=== PATIENT | female | born 1945 | race Caucasian/White ===

== ENCOUNTER 2016-11-05 09:34 | Outpatient (CLI) | payer OTHER ==
--- NOTE | 2016-11-05 10:35 | DIAGNOSTIC IMAGING REPORT ---
PROCEDURE: US SOFT TISSUE THYR/NECK/HEAD INDICATION: SWELLING BASE OF NECK TECHNIQUE: Flores scale and color Doppler sonographic images of the thyroid gland were obtained. COMPARISON: None. FINDINGS: Swelling at the base of the neck corresponds to adipose tissue. RIGHT LOBE: Measures 4.9 x 2.4 x 1.9 cm. There is a 3 ml mid pole cyst and 5 mm solid mid pole lesion with hypoechoic rim suggestive of an adenoma. LEFT LOBE: Measures 5.3 x 2.2 x 1.7 cm. There is an 8 mm mid pole complex well marginated nodule. ISTHMUS: Measures 6 mm. IMPRESSION: 1. No evidence of a mass at the base of the neck 2. Small bilateral thyroid nodules suggestive of adenomas.
--- NOTE | 2016-11-05 10:57 | DIAGNOSTIC IMAGING REPORT ---
PROCEDURE: MG BILATERAL SCREENING W/CAD INDICATION: Pain. Family history breast carcinoma (sister). TECHNIQUE: Bilateral CC and MLO digital views. COMPARISON: Compared to 10/12/2014, , and 07/22/2012. FINDINGS: Computer-aided detection applied. Mildly dense with a few dystrophic calcifications. No change. IMPRESSION: 1. Negative mammogram. RESULT CODE: 1- Negative. A. A negative report should not delay biopsy if a dominant or clinically suspicious mass is present. 10-15% of cancers are not identified by x-ray. B. A negative report may reinforce clinical impression. C. Adenosis and dense breasts may obscure an underlying neoplasm. D. False positive reports average 6-10%. E.. A yearly screening mammogram is recommended. A reminder letter will be scheduled.
== END 2016-11-05 23:00 ==
LOC: MAM SRH 09:34
DX: R22.1 Localized swelling, mass and lump, neck (principal); Z12.31 Encounter for screening mammogram for malignant neoplasm of breast; Z80.3 Family history of malignant neoplasm of breast

== ENCOUNTER 2017-03-02 09:08 | Outpatient (CLI) | payer OTHER | END 2017-03-02 23:00 | LOC: RT SRH 09:08 | DX: R06.02 Shortness of breath (principal); R06.00 Dyspnea, unspecified; J98.4 Other disorders of lung ==

== ENCOUNTER → 2017-03-04 | Outpatient (CLI) | payer OTHER ==
--- NOTE | 2017-03-08 16:00 | DIAGNOSTIC IMAGING REPORT ---
REFERRING PHYSICIAN/PROVIDER: Malcolm Wei MD CONSULTING INFORMATION TECHNOLOGY ASSISTANT: Benjamin Choudhary MD PROCEDURE PERFORMED: NM CARDIAC STRESS TEST INDICATION: SOB,DYSPNEA Stress PORTION: Please see Dr. Sidhu's dictation 2-day SESTAMIBI INTERPRETATION: On the day 11 the patient underwent treadmill stress testing with 29 mCi of technetium 99m labeled sestamibi injected at peak exercise. On day two the patient underwent rest imaging with 32 mCi of technetium 99m labeled sestamibi injected at rest with SPECT tomography performed. Rest stress images were then compared. The LV was seen to be normal in size. There is a moderate sized area of mild ischemia noted in the lateral wall. Computer assessed ejection fraction was normal at 64%. IMPRESSION: 1. Moderate sized area of mild ischemia noted in the lateral wall. 2. Normal left ventricular size 3. Normal left ventricular function 4. Intermediate rest study 5. Would recommend cardiac consultation given abnormal stress test findings.
--- NOTE | 2017-03-08 16:00 | DIAGNOSTIC IMAGING REPORT ---
REFERRING PHYSICIAN/PROVIDER: Malcolm Wei MD CONSULTING TOLL MECHANIC: Benjamin Choudhary MD PROCEDURE PERFORMED: NM CARDIAC STRESS TEST INDICATION: SOB,DYSPNEA Stress PORTION: Please see Dr. Sidhu's dictation 2-day SESTAMIBI INTERPRETATION: On the day 11 the patient underwent treadmill stress testing with 29 mCi of technetium 99m labeled sestamibi injected at peak exercise. On day two the patient underwent rest imaging with 32 mCi of technetium 99m labeled sestamibi injected at rest with SPECT tomography performed. Rest stress images were then compared. The LV was seen to be normal in size. There is a moderate sized area of mild ischemia noted in the lateral wall. Computer assessed ejection fraction was normal at 64%. IMPRESSION: 1. Moderate sized area of mild ischemia noted in the lateral wall. 2. Normal left ventricular size 3. Normal left ventricular function 4. Intermediate rest study 5. Would recommend cardiac consultation given abnormal stress test findings.
== END ==
LOC: RT SRH 12:35
PROC: 4A02XM4 Measurement of Cardiac Total Activity, External Approach (ICD-10-PCS; principal; 2017-03-04)
PROC: 3E073KZ Introduction of Other Diagnostic Substance into Coronary Artery, Percutaneous Approach (ICD-10-PCS; principal; 2017-03-04)
DX: R94.39 Abnormal result of other cardiovascular function study (principal)